=== PATIENT | male | born 1960 | race Caucasian/White ===

== ENCOUNTER 2016-09-14 11:59 | Emergency (ER) | payer OTHER ==
[2016-09-14 14:14] LABS: Hematocrit 44 % (42-52); Hemoglobin 14.9 g/dl (14.0-18.0); Mean Corpuscular HGB Conc 34 g/dl (31-36); Mean Corpuscular Hemoglobin 32 pg (27-31); Mean Corpuscular Volume 96 fL (80-94); Mean Platelet Volume 8 um3 (7.4-10.4); Red Blood Count 4.62 10^6/ul (4.0-5.4); Red Cell Distribution Width 14 % (10.5-15); White Blood Count 6.6 10^3/ul (3.5-10.8)
--- NOTE | 2016-09-14 14:14 | RAD ---
HISTORY: Chest pain COMPARISONS: May 14, 2014 VIEWS: 2: Frontal dual-energy and lateral views of the chest. FINDINGS: CARDIOMEDIASTINAL SILHOUETTE: The cardiomediastinal silhouette is normal. MAE: The mae are normal. PLEURA: The costophrenic angles are sharp. No pleural abnormalities are noted. LUNG PARENCHYMA: There is hyperinflation with flattening of the diaphragm and expansion of the AP diameter of the chest. ABDOMEN: The upper abdomen is clear. There is no subphrenic gas. BONES AND SOFT TISSUES: No bone or soft tissue abnormalities are noted. OTHER: None. IMPRESSION: HYPERINFLATION, CONSISTENT WITH COPD. NO ACTIVE CARDIOPULMONARY DISEASE.
[2016-09-14 14:20] LABS: Albumin 4.3 g/dL (3.2-5.2); BUN/Creatinine Ratio 14.5 (8-20); Calcium 9.4 mg/dL (8.6-10.3); EGFR African American 83.9 (>60); EGFR Non-African American 65.2 (>60); Globulin 2.9 g/dL (2-4); Total Bilirubin 0.6 mg/dL (0.2-1.0); Total Protein 7.2 g/dL (6.4-8.9)
[2016-09-14 14:25] LABS: Potassium 4.2 mmol/L (3.5-5.0)
[2016-09-14 16:08] VITALS: BP 133/93
--- NOTE | 2016-09-15 20:51 | ED ---
Zhane Watts Alok, scribed for Robert Young MD on 09/14/16 at 1344 . HPI Chest Pain - HPI Summary HPI Summary: 55M presents to the ED for a gradual onset of CP while at work about 2 hours ago. Pt states that this pain began in the right-side of his chest near the sternum and radiated to the left-side of his chest and left side of his neck. He described the pain as a pressure and was accompanied by diaphoresis. Pt states that the CP lasted 15 in total and subsided shortly after leaving his work place and denies CP currently. The pt states he believes the pain to be stress related. Pt denies tingling, SOB, or nausea. Pt takes medications for depression and HTN. PCP Dr. Gonzalez. - History of Current Complaint Chief Complaint: EDChestPainROMI Time Seen by Provider: 09/14/16 13:12 Hx Obtained From: Patient Onset/Duration: Started Minutes Ago, Atraumatic, Resolved Timing: Constant, Lasting Minutes Initial Severity: Moderate Current Severity: Moderate Pain Intensity: 3 Pain Scale Used: 0-10 Numeric Chest Pain Location: Right Anterior Chest Pain Radiates: Yes Chest Pain Radiates To:: Neck Character: Pressure/Squeezing Aggravating Factor(s): Other: - stress Associated Signs and Symptoms: Positive: Chest Pain, Diaphoresis. Negative: Tingling, Shortness of Breath, Nausea - Allergy/Home Medications Allergies/Adverse Reactions: Allergies Allergy/AdvReac Type Severity Reaction Status Date / Time No Known Allergies Allergy Verified 07/01/14 15:12 PMH/Surg Hx/FS Hx/Imm Hx Cardiovascular History: Reports: Hx Hypertension Infectious Disease History: No Infectious Disease History: Denies: Traveled Outside the [place] in Last 30 Days - Family History Known Family History: Positive: Other - Yes - Parkinson's (mother) Negative: Cardiac Disease Review of Systems Positive: Skin Diaphoresis. Negative: Fever Positive: Chest Pain Negative: Shortness Of Breath Negative: Nausea Neurological: Other - Negative: Tingling All Other Systems Reviewed And Are Negative: Yes Physical Exam Triage Information Reviewed: Yes Vital Signs On Initial Exam: Initial Vitals Temp Pulse Resp BP Pulse Ox 97.0 F 74 16 162/112 100 09/14/16 12:02 09/14/16 12:02 09/14/16 12:02 09/14/16 12:02 09/14/16 12:02 Vital Signs Reviewed: Yes Appearance: Positive: Well-Appearing, No Pain Distress Skin: Positive: Warm, Skin Color Reflects Adequate Perfusion, Dry Head/Face: Positive: Normal Head/Face Inspection Eyes: Positive: Normal ENT: Positive: Normal ENT inspection Neck: Positive: Supple, Nontender Respiratory/Lung Sounds: Positive: Clear to Auscultation, Breath Sounds Present Cardiovascular: Positive: RRR Abdomen Description: Positive: Nontender, Soft Bowel Sounds: Positive: Present Musculoskeletal: Positive: Normal Neurological: Positive: Normal Psychiatric: Positive: Normal, Affect/Mood Appropriate Diagnostics - Vital Signs Vital Signs Temp Pulse Resp BP Pulse Ox 09/14/16 12:02 97.0 F 74 16 162/112 100 - Laboratory Lab Results: Lab Results 09/14/16 09/14/16 09/14/16 Range/Units 13:45 13:45 13:45 WBC 6.6 (3.5-10.8) 10^3/ul RBC 4.62 (4.0-5.4) 10^6/ul Hgb 14.9 (14.0-18.0) g/dl Hct 44 (42-52) % MCV 96 H (80-94) fL MCH 32 H (27-31) pg MCHC 34 (31-36) g/dl RDW 14 (10.5-15) % Plt Count 206 (150-450) 10^3/ul MPV 8 (7.4-10.4) um3 Neut % (Auto) 70.2 (38-83) % Lymph % (Auto) 19.2 L (25-47) % [place] % (Auto) 8.5 (1-9) % Eos % (Auto) 1.5 (0-6) % Baso % (Auto) 0.6 (0-2) % Absolute Neuts (auto) 4.6 (1.5-7.7) 10^3/ul Absolute Lymphs (auto) 1.3 (1.0-4.8) 10^3/ul Absolute Monos (auto) 0.6 (0-0.8) 10^3/ul Absolute Eos (auto) 0.1 (0-0.6) 10^3/ul Absolute Basos (auto) 0 (0-0.2) 10^3/ul Absolute Nucleated RBC 0 10^3/ul Nucleated RBC % 0 INR (Anticoag Therapy) 0.92 (0.89-1.11) Sodium 136 (133-145) mmol/L Potassium 4.2 (3.5-5.0) mmol/L Chloride 105 (101-111) mmol/L Carbon Dioxide 24 (22-32) mmol/L Anion Gap 7 (2-11) mmol/L BUN 17 (6-24) mg/dL Creatinine 1.17 (0.67-1.17) mg/dL Est GFR ( Amer) 83.9 (>60) Est GFR (Non-Af Amer) 65.2 (>60) BUN/Creatinine Ratio 14.5 (8-20) Glucose 91 (70-100) mg/dL Lactic Acid (0.5-2.0) mmol/L Calcium 9.4 (8.6-10.3) mg/dL Total Bilirubin 0.60 (0.2-1.0) mg/dL AST 21 (13-39) U/L ALT 19 (7-52) U/L Alkaline Phosphatase 70 (34-104) U/L Troponin I 0.00 (<0.04) ng/mL Total Protein 7.2 (6.4-8.9) g/dL Albumin 4.3 (3.2-5.2) g/dL Globulin 2.9 (2-4) g/dL Albumin/Globulin Ratio 1.5 (1-3) 09/14/16 09/14/16 Range/Units 13:45 15:19 WBC (3.5-10.8) 10^3/ul RBC (4.0-5.4) 10^6/ul Hgb (14.0-18.0) g/dl Hct (42-52) % MCV (80-94) fL MCH (27-31) pg MCHC (31-36) g/dl RDW (10.5-15) % Plt Count (150-450) 10^3/ul MPV (7.4-10.4) um3 Neut % (Auto) (38-83) % Lymph % (Auto) (25-47) % [place] % (Auto) (1-9) % Eos % (Auto) (0-6) % Baso % (Auto) (0-2) % Absolute Neuts (auto) (1.5-7.7) 10^3/ul Absolute Lymphs (auto) (1.0-4.8) 10^3/ul Absolute Monos (auto) (0-0.8) 10^3/ul Absolute Eos (auto) (0-0.6) 10^3/ul Absolute Basos (auto) (0-0.2) 10^3/ul Absolute Nucleated RBC 10^3/ul Nucleated RBC % INR (Anticoag Therapy) (0.89-1.11) Sodium (133-145) mmol/L Potassium (3.5-5.0) mmol/L Chloride (101-111) mmol/L Carbon Dioxide (22-32) mmol/L Anion Gap (2-11) mmol/L BUN (6-24) mg/dL Creatinine (0.67-1.17) mg/dL Est GFR ( Amer) (>60) Est GFR (Non-Af Amer) (>60) BUN/Creatinine Ratio (8-20) Glucose (70-100) mg/dL Lactic Acid 0.7 (0.5-2.0) mmol/L Calcium (8.6-10.3) mg/dL Total Bilirubin (0.2-1.0) mg/dL AST (13-39) U/L ALT (7-52) U/L Alkaline Phosphatase (34-104) U/L Troponin I 0.00 (<0.04) ng/mL Total Protein (6.4-8.9) g/dL Albumin (3.2-5.2) g/dL Globulin (2-4) g/dL Albumin/Globulin Ratio (1-3) Result Diagrams: 09/14/16 13:45 09/14/16 13:45 Lab Statement: Any lab studies that have been ordered have been reviewed, and results considered in the medical decision making process. - Radiology CXR Xray Interpretation: Positive (See Comments) - HYPERINFLATION, CONSISTENT WITH COPD. NO ACTIVE CARDIOPULMONARY DISEASE. Radiology Interpretation Completed By: Radiologist - EKG 1210 Cardiac Rate: NL - 63 bpm EKG Rhythm: Sinus Rhythm Chest Pain Course/Dx - Course Course Of Treatment: Mr. Christie presented C/O CP that lasted about 15 minutes. It came on when he was under a great deal of stress at work and reolved shortly after extrcating himself from the situation and has not recurred. His initial BP was elevated but this also came down on its own accord. His W/U including two troponins was negative and it is possible that his BP was even higher during the stress. I recommended that he F/U for further testing with his PMD. - Diagnoses Provider Diagnoses: Chest pain Discharge - Discharge Plan Condition: Stable Disposition: HOME Patient Education Materials: Chest Pain (ED) Referrals: Fabiano Butler MD [Primary Care Provider] - Additional Instructions: Please follow up with your primary care provider. The documentation as recorded by the Zhane tapia Alok accurately reflects the service I personally performed and the decisions made by me, Robert Young MD.
== END 2016-09-14 16:15 | disposition home or self-care (01) ==
LOC: ED 11:59
DX: R07.9 Chest pain, unspecified (principal)
CPT/HCPCS: 36415; 71020; 80053; 83605; 84484; 85025; 85610; 93005; 99283

== ENCOUNTER 2018-10-04 21:57 | Inpatient (IN) | payer OTHER ==
[2018-10-04 23:41] LABS: ABS Lymphocytes 0.8 10^3/ul (1.0-4.8); ABS Monocytes 0.5 10^3/ul (0-0.8); ABS Neutrophils 9.2 10^3/ul (1.5-7.7); Hematocrit 46 % (42-52); Hemoglobin 15.5 g/dL (14.0-18.0); Lymphocyte % 7.8 %; Mean Corpuscular HGB Conc 33 g/dL (31-36); Mean Corpuscular Hemoglobin 32 pg (27-31); Mean Corpuscular Volume 95 fL (80-94); Mean Platelet Volume 7.3 fL (7.4-10.4); Platelet Count 238 10^3/uL (150-450); Red Blood Count 4.87 10^6 /uL (4.18-5.48); Red Cell Distribution Width 15 % (10.5-15); White Blood Count 10.6 10^3/uL (3.5-10.8)
[2018-10-04 23:59] LABS: Anion Gap 9 mmol/L (2-11); BUN/Creatinine Ratio 13.8 (8-20); Blood Urea Nitrogen 19 mg/dL (6-24); CO2 Carbon Dioxide 25 mmol/L (22-32); Calcium 9.9 mg/dL (8.6-10.3); Chloride 102 mmol/L (101-111); EGFR African American 64.7 (>60); EGFR Non-African American 53.5 (>60); Glucose 124 mg/dL (70-100); Potassium 4.7 mmol/L (3.5-5.0); Sodium 136 mmol/L (135-145)
[2018-10-05 00:04] LABS: CKMB ng/mL 189.6 ng/mL (0.6-6.3)
--- NOTE | 2018-10-05 00:05 | ED ---
HPI Chest Pain - HPI Summary HPI Summary: The patient is a 57 y/o M presenting to [facility] with a chief complaint of sudden onset mid-sternal and epigastric CP starting at 2000 tonight. He reports that he was at rest when the pain started. He denies nausea, vomiting, SOB, abd pain , and dizziness. The aching pain is still mildly present and currently rated 4/ 10 in severity. He reports that he usually doesn't have CP or SOB with ambulation. Three years ago the patient had similar symptoms without significant findings; he did not have a stress test after this. Hx of HTN controlled by medication. No FHx of cardiac disease. Current everyday light smoker. - History of Current Complaint Chief Complaint: EDChestPainROMI Time Seen by Provider: 10/04/18 23:55 Hx Obtained From: Patient Onset/Duration: Started Hours Ago - at 2000, Still Present Timing: Lasting Hours Initial Severity: Moderate Current Severity: Mild Pain Intensity: 4 Pain Scale Used: 0-10 Numeric Chest Pain Location: Mid Sternal Chest Pain Radiates: Yes Chest Pain Radiates To:: Epigastric Character: Dull/Aching Aggravating Factor(s): Nothing Alleviating Factor(s): Nothing Associated Signs and Symptoms: Negative: Dizziness, Shortness of Breath, Nausea , Abdominal Pain, Vomiting - Allergy/Home Medications Allergies/Adverse Reactions: Allergies Allergy/AdvReac Type Severity Reaction Status Date / Time No Known Allergies Allergy Verified 10/04/18 22:06 Home Medications: Home Medications Atenolol 1 tab PO DAILY 10/05/18 [History Confirmed 10/05/18] Duloxetine HCl 60 mg PO DAILY 10/05/18 [History Confirmed 10/05/18] Omeprazole 1 cap PO DAILY 10/05/18 [History Confirmed 10/05/18] buPROPion HCl [Bupropion HCl Sr] 150 mg PO Q48HR 10/05/18 [History Confirmed 05/25] PMH/Surg Hx/FS Hx/Imm Hx Endocrine/Hematology History: Denies: Hx Diabetes Cardiovascular History: Reports: Hx Hypertension Sensory History: Reports: Hx Contacts or Glasses Denies: Hx Deafness Opthamlomology History: Denies: Hx Legally Blind EENT History: Denies: Hx Deafness - Surgical History Surgery Procedure, Year, and Place: none Infectious Disease History: No Infectious Disease History: Denies: Traveled Outside the [place] in Last 30 Days - Family History Known Family History: Positive: Other - Yes - Parkinson's (mother) Negative: Cardiac Disease - Social History Alcohol Use: Occasionally Hx Substance Use: No Substance Use Type: Reports: None Hx Tobacco Use: Yes Smoking Status (MU): Light Every Day Tobacco Smoker Type: Cigarettes Review of Systems Positive: Chest Pain - mid-sternal and epigastric Negative: Shortness Of Breath Negative: Abdominal Pain, Vomiting, Nausea Neurological: Other - NEGATIVE: dizziness All Other Systems Reviewed And Are Negative: Yes Physical Exam - Summary Physical Exam Summary: Appearance: Well appearing, no pain distress Skin: warm, dry, reflects adequate perfusion Head/face: normal Eyes: EOMI, WARREN ENT: normal Neck: supple, non-tender Respiratory: CTA, breath sounds present Cardiovascular: RRR, pulses symmetrical Abdomen: non-tender, soft Musculoskeletal: normal, strength/ROM intact Neuro: normal, sensory motor intact, A&Ox3 Triage Information Reviewed: Yes Vital Signs On Initial Exam: Initial Vitals Temp Pulse Resp BP Pulse Ox 96.1 F 75 16 160/118 97 10/04/18 21:59 10/04/18 21:59 10/04/18 21:59 10/04/18 21:59 10/04/18 21:59 Vital Signs Reviewed: Yes Diagnostics - Vital Signs Vital Signs Temp Pulse Resp BP Pulse Ox 10/04/18 21:59 96.1 F 75 16 160/118 97 - Laboratory Lab Results: Lab Results 10/04/18 Range/Units 23:33 WBC 10.6 (3.5-10.8) 10^3/uL RBC 4.87 (4.18-5.48) 10^6 /uL Hgb 15.5 (14.0-18.0) g/dL Hct 46 (42-52) % MCV 95 H (80-94) fL MCH 32 H (27-31) pg MCHC 33 (31-36) g/dL RDW 15 (10.5-15) % Plt Count 238 (150-450) 10^3/uL MPV 7.3 L (7.4-10.4) fL Neut % (Auto) 86.9 % Lymph % (Auto) 7.8 % [place] % (Auto) 5.1 % Eos % (Auto) 0.0 % Baso % (Auto) 0.2 % Absolute Neuts (auto) 9.2 H (1.5-7.7) 10^3/ul Absolute Lymphs (auto) 0.8 L (1.0-4.8) 10^3/ul Absolute Monos (auto) 0.5 (0-0.8) 10^3/ul Absolute Eos (auto) 0.0 (0-0.6) 10^3/ul Absolute Basos (auto) 0.0 (0-0.2) 10^3/ul Absolute Nucleated RBC 0.0 10^3/ul Nucleated RBC % 0.0 Result Diagrams: 10/04/18 23:33 10/04/18 23:32 Lab Statement: Any lab studies that have been ordered have been reviewed, and results considered in the medical decision making process. - Radiology CXR Radiology Interpretation Completed By: Radiologist Summary of Radiographic Findings: No acute infiltrate. ED physician has reviewed this radiology report. - EKG 2157 Cardiac Rate: NL - 75 BPM EKG Rhythm: Sinus Rhythm EKG Comparison: Other - Changes from previous taken on 09/14/2016 Summary of EKG Findings: ST depressions in inferior leads EKG2 Cardiac Rate: NL - 61 BPM EKG Rhythm: Sinus Rhythm EKG Comparison: Other - No ST depressions like in previous EKG taken 10/04/2018 Summary of EKG Findings: No ST changes Re-Evaluation - Re-Evaluation First Eval Re-Evaluation Time: 00:30 Change: Improved Comment: The patient's pain has improved from 4/10 to 1/10. We discussed admission. Chest Pain Course/Dx - Course Assessment/Plan: The patient is a 57 y/o M presenting to [facility] with a chief complaint of sudden onset mid-sternal and epigastric CP starting at 2000 tonight while at rest. He denies nausea, vomiting, SOB, abd pain, and dizziness. Hx of HTN. Upon physical exam, the patient exhibits no acute abnormalities. In the ED course, the patient was administered ASA, NTG, Metoprolol, and Heparin. Blood work obtained. Troponin of 6.85 and APTT of 139.6. EKG reveals ST depressions in the inferior leads. CXR reveals no acute infiltrate. I spoke with Dr. Lopez, cardiology, at 0015 concerning the patient s lab work; he suggests a repeat EKG. Second EKG reveals no ST depressions. At 0030, I discussed EKG results with Dr. Lopez, and he recommends NTG drip, but the patient needs admission despite pain and BP decreasing. I consulted with Dr. Dobbs, hospitalist, who accepts the patient for admission at 0045. He is diagnosed with acute coronary syndrome. He agrees with the plan for admission and understands the need for admission at this time. - Chest Pain Differential Diagnosis/HQI/PQRI: Acute SD, ACS, Angina, CHF, Chest Wall, Lower Respiratory Infection, Pulmonary Edema - Diagnoses Provider Diagnoses: ACS (acute coronary syndrome) - Provider Notifications Discussed Care Of Patient With: Jens Lopez - cardiology Time Discussed With Above Provider: 00:15 Instructed by Provider To: Other - I discussed the patient's case with Dr. Lopez; he suggests second EKG at this time. After the second EKG at 0030, I spoke with Dr. Lopez again, and he recommends nitro drip and admission despite decrease in pain and BP. I discussed the patient's case with Dr. Dobbs, hospitalist, at 0045, and she accepts the patient for admission at this time. - Critical Care Time Critical Care Time: 75-104 min Discharge - Sign-Out/Discharge Documenting (check all that apply): Patient Departure - Patient is accepted for admission by Dr. Dobbs. Patient Received Moderate/Deep Sedation with Procedure: No - Discharge Plan Condition: Stable Disposition: ADMITTED TO [facility] - Billing Disposition and Condition Condition: STABLE Disposition: Admitted to [facility] - Attestation Statements Document Initiated by Harish: Yes Documenting Scribe: Tamika Dorado Provider For Whom Harish is Documenting (Include Credential): Dr. Richard Witt MD Scribe Attestation: Tamika Watts, scribed for Dr. Richard Witt MD on 10/05/18 at 0515. Scribe Documentation Reviewed: Yes Provider Attestation: The documentation as recorded by the Tamika tapia accurately reflects the service I personally performed and the decisions made by me, Dr. Richard Witt MD Status of Scribe Document: Viewed
[2018-10-05] MEDS ORDERED: Aspirin 81 mg CHEW TAB* 81 MG TAB.CHEW PO ONE (00:06)
[2018-10-05] MEDS ORDERED: Metoprolol Tartrate TAB* 25 MG PO ONE (00:07)
[2018-10-05] MEDS ORDERED: Heparin for STEMI(*) 5,000 UNITS/ML 1 ML VIAL IV ONE (00:07)
[2018-10-05 00:13] LABS: Troponin I 6.85 ng/mL (<0.04)
[2018-10-05] MEDS ORDERED: Heparin DRIP 25,000 UNITS(*) 25,000 UNITS/500 ML BAG IV SCH (00:15)
[2018-10-05 00:30] LABS: Creatine Kinase 1250 U/L (10-223)
[2018-10-05] MEDS ORDERED: Nitroglycerin TAB 0.3 MG* 0.3 MG TAB SL ONE (00:36)
[2018-10-05] MEDS ORDERED: Metoprolol Tartrate IV* 1 MG/ML 5 ML VIAL IV ONE ×2 (00:36→07:03)
[2018-10-05] MEDS ORDERED: nitroGLYCERIN DRIP* 25,000 MCG/250 ML BTL IV ONE ×2 (00:37→01:03)
[2018-10-05] MEDS ORDERED: Atorvastatin* 80 MG TAB PO ONE ×2 (01:05→21:00)
[2018-10-05 01:37] LABS: INR 1.07 (0.82-1.09)
[2018-10-05 01:53] LABS: Activated Partial Thrombo Time 139.6 seconds (26.0-38.0)
[2018-10-05 03:22] LABS: Troponin I 23.28 ng/mL (<0.04)
--- NOTE | 2018-10-05 03:28 | HP ---
CC: Dr. Butler.* HISTORY AND PHYSICAL: DATE OF ADMISSION: 10/05/18 PRIMARY CARE PROVIDER: Dr. Butler. CHIEF COMPLAINT: Chest pain. HISTORY OF PRESENT ILLNESS: Mr. Christie is a 57-year-old male who had been out in his yard, doing yard work on the day prior to admission. He states that this was light yard work that included getting up on a 6-foot tall ladder and cleaning leaves out of a gutter. He states that he went inside and laid down on the bed. He believes he fell asleep for approximately 20 minutes and when he awakened, he had centrally located chest discomfort and diaphoresis. The patient states that this began at approximately 3:30 to 4 p.m. on the day prior to admission. He described the chest discomfort as a weight on his chest. He also describes significant diaphoresis. He had no associated shortness of breath, no nausea. He did not have any radiation of the pain. He noted that the pain remained constant at approximately a level of 4 and present until he presented to the emergency room. In the emergency room, after a sublingual nitroglycerin, the patient had a decrease in his pain level down to 1, though continues to have discomfort in his chest. The patient states that he did have an episode similar to this approximately 2 years ago. He was hospitalized at that time. He states that he was seen in the emergency room at that time. He had serial troponins performed in the ER and was discharged home. The patient has had no chest pain since that time. PAST MEDICAL HISTORY: 1. Depression. 2. GERD. 3. Hypertension. PAST SURGICAL HISTORY: Appendectomy. MEDICATIONS: 1. Bupropion SR 150 mg p.o. q.48 hours. 2. Omeprazole 20 mg p.o. daily. 3. Duloxetine 60 mg p.o. daily. 4. Atenolol 25 mg p.o. daily. FAMILY HISTORY: Mom at the age of 82 following a broken hip. Dad is living, he is 94, he has a history of chronic kidney disease. There is no family history of premature coronary artery disease. SOCIAL HISTORY: The patient has been an ongoing smoker over the last 20 years. He states that he quit today learning that he is having an [place]. He has been smoking about 10 cigarettes per day. He drinks alcohol on occasion. He is retired from [employer]. He is not . He has no children. He indicates that his brother, Александр will be his healthcare proxy. REVIEW OF SYSTEMS: A complete 11-system review of systems is obtained. Pertinent positives and negatives are as per HPI. In addition, the patient does admit to an occasional cough, which has been an ongoing issue. He denies any recent long distance travel. There has been no hematochezia, no hematuria. PHYSICAL EXAMINATION GENERAL: The patient is a well-developed, middle-aged male, seen sitting up in the stretcher, in no acute distress. VITAL SIGNS: Blood pressure 154/107, pulse 68, respirations 15, temp 96.1 (I question if this is valid), O2 sat 96% on room air. HEENT: Pupils are equal and round. Extraocular muscles are intact. Oropharynx is clear. Oral mucosa is moist. NECK: There is no submandibular, cervical or supraclavicular adenopathy. Thyroid is not enlarged. No thyroid nodules noted. PULMONARY: Lungs are clear to auscultation bilaterally. CARDIAC: Normal S1, S2. Regular rate and rhythm. I do not appreciate any murmurs. There is no lower extremity edema. ABDOMEN: Bowel sounds are present. Abdomen is soft, nontender, and nondistended. MUSCULOSKELETAL: There is no cyanosis or clubbing of the digits. There is full active range of motion of all 4 extremities. NEURO: Cranial nerves II through XII are grossly intact. Sensation is intact to light touch throughout. Strength is 5/5 and symmetric to both upper and lower extremities bilaterally. SKIN: Warm and dry. There are no rashes. PSYCH: The patient is alert. He is oriented x3. Affect is appropriate. DIAGNOSTIC STUDIES/LAB DATA: Labs: WBC 10.6, hemoglobin 15.5, hematocrit 46, platelets 238. Sodium 136, potassium 4.7, chloride 102, CO2 of 25, BUN 19, creatinine 1.38, glucose 124, calcium 9.9, CPK 1250, CK-MB 189.6, troponin 6.85. EKG initially reveals normal sinus rhythm with significant ST depressions in the inferior leads. Repeat EKG shows improvement in ST depressions. Chest x-ray to my interpretation is clear. ASSESSMENT AND PLAN: Mr. Christie is a 57-year-old male with a history of hypertension, gastroesophageal reflux disease, and depression, who presents to the emergency room with complaints of chest pain. 1. Non ST elevation myocardial infarction. At this point, it is clear that the patient is having a non-ST elevation myocardial infarction. His EKG has improved as has his degree of chest discomfort. At this point, the plan is to medically manage the patient through the night and have Cardiology formally consult in the morning. The patient will continue on aspirin, metoprolol 25 mg twice daily, Lipitor 80 mg daily, heparin drip, and nitroglycerin infusion. The goal is to get the patient chest pain free. He will have a followup troponin at 0230 as well as a followup EKG at 0700. I suspect the patient will need to be taken to the catheterization lab. I have informed the patient that he is to monitor for any worsened chest pain or any other concerning symptoms. If anything is to develop, he is to alert his nurse. The patient will undergo a transthoracic echocardiogram on 10/06/18. 2. Hypertension. The patient's blood pressure has been uncontrolled in the emergency room. He typically will take Tylenol 25 mg daily, however, in the setting of myocardial infarction, I am going to change this to metoprolol tartrate 25 mg twice daily. He may benefit from an KILEY inhibitor, however, his creatinine is up slightly from his baseline, therefore, I will hold on this for now. He is going to be on a nitroglycerin infusion, this will likely improve his blood pressure. We will continue to monitor his BP on the nitroglycerin. If his creatinine improves, lisinopril should be initiated. 3. Gastroesophageal reflux disease. We will continue PPI. 4. Depression. Continue bupropion and duloxetine. 5. DVT prophylaxis. According to the Adult Thrombosis Prophylaxis Risk Factor Assessment Guide, the patient has a total risk factor score of 3, making him high risk. He is already going to be on heparin drip and this will act as his DVT prophylaxis. 8. Code status is full. TIME SPENT: Sixty minutes was spent admitting this patient. [id number]/CPS #: [id number] MORRIS
[2018-10-05 06:52] LABS: Troponin I 37.33 ng/mL (<0.04)
[2018-10-05] MEDS ORDERED: Ticagrelor* 90 MG TAB PO ONE ×2 (07:37→08:00)
[2018-10-05] MEDS ORDERED: Lidocaine 1% INJ* 10 MG/ML 30 ML SDV ONE ×2 (07:41→07:56)
[2018-10-05] MEDS ORDERED: Iodixanol 320 (CONTRAST) 100 ML SDV ONE ×3 (07:43→09:08)
[2018-10-05] MEDS ORDERED: Heparin 2 UNITS/ML IVPREMIX* 2,000 UNIT/1,000 ML BAG IV ONE ×2 (07:43→08:55)
[2018-10-05] MEDS ORDERED: Midazolam* 1 MG/ML 5 ML VIAL (5 MG) ONE (07:56)
[2018-10-05] MEDS ORDERED: fentaNYL* 50 MCG/ML 2 ML VIAL (100 MCG VIAL) ONE (07:56)
[2018-10-05] MEDS ORDERED: Heparin(*) 1000 UNIT/ML 10 ML VIAL CATH LAB IV ONE (07:56)
[2018-10-05] MEDS ORDERED: Bivalirudin(*) 250 MG VIAL ONE (08:35)
[2018-10-05] MEDS ORDERED: nitroGLYCERIN DRIP* 25,000 MCG/250 ML BTL ONE (08:38)
[2018-10-05] MEDS ORDERED: Lisinopril TAB* 5 MG PO SCH (09:00)
[2018-10-05] MEDS ORDERED: NS 0.9% 1000 ML** 1,000 ML IV SCH (09:45)
[2018-10-05] MEDS ORDERED: Nitroglycerin TAB 0.4 MG* 0.4 MG TAB SL PRN (09:45)
[2018-10-05] MEDS: Aspirin 81 mg CHEW TAB* 81 MG TAB.CHEW PO SCH (10:11)
[2018-10-05] MEDS: Pantoprazole TAB * 40 MG TAB PO SCH (10:11)
[2018-10-05] MEDS: DULoxetine DR CAP* 60 MG CAP.DR PO SCH (10:11)
[2018-10-05] MEDS: Metoprolol Tartrate TAB* 25 MG PO SCH ×2 (10:11→20:11)
[2018-10-05] MEDS: buPROPion SR TAB.SR* 150 MG PO SCH (10:11)
--- NOTE | 2018-10-05 10:39 | CONS ---
CC: Jens Lopez MD; Dr. Butler CARDIOLOGY CONSULTATION: DATE OF CONSULT: 10/05/18 REASON FOR EVALUATION: Chest pain, [id number]. HISTORY OF PRESENT ILLNESS: This is a very pleasant 57-year-old gentleman with a history of hypertension, depression, and hyperlipidemia. He was in his usual state of health until yesterday afternoon. He said that he was doing some yard work, cleaning some weeds out of a gutter going up and down a small ladder. He felt well doing that. Then he went to bed and fell asleep. He woke up at about 4:00 with substernal chest pressure, diaphoresis, and shortness of breath that lasted about 20 to 30 minutes and because of his persistent pain, he decided to come to the emergency room. He said the worse of the symptoms would have lasted about 10, 20 or 30 minutes, but he did not proceed to the emergency room until about 10 o'clock at night. The worse of his pain was 4/10. When he got to the emergency room, he was noted to have inferior ST depressions, new compared to the prior EKG. He was treated with beta-blockers, IV heparin, IV nitro with improvement in his pain and his ST depressions. He was hypertensive when he first arrived. As mentioned, his EKG improved and his chest pain went to about 1/10. He says he is not sure if that went away, it kind of waxed and waned over the next couple of hours. This morning he says he continues to have mild discomfort. He denies any syncope or near syncope. He says he feels a little warm, but he thinks the room is warm. He is not short of breath. No orthopnea, no peripheral edema. No palpitations, syncope, or near syncope. He says normally he is not very active, but does ride a bike for 30 or 40 minutes on level ground twice a week. PAST MEDICAL HISTORY: GERD; hypertension depression tobacco use, discontinued 1 month ago; mild COPD according to the x-ray from 3 to 4 years ago hyperlipidemia, not treated. PAST SURGICAL HISTORY: Includes an appendectomy in 85. MEDICATIONS: His medications include: 1. Bupropion SR 150 mg q.48 hours. 2. Omeprazole 20 mg a day. 3. Duloxetine 60 mg a day. 4. Atenolol 25 mg a day. Medications as impatient include: 1. Aspirin 81 mg a day. 2. Lipitor 80 mg a day. 3. Wellbutrin 150 mg q.48. 4. Cymbalta 60 mg a day. 5. IV heparin. 6. Metoprolol tartrate 25 mg b.i.d. 7. Nitroglycerin drip at 15 mcg a minute. 8. Protonix 40 mg a day. 9. He just got Brilinta 180 mg. ALLERGIES: He denies any allergies. FAMILY HISTORY: His father is alive and 94. Mother at approximately 82 when she fell and broke her hip. SOCIAL HISTORY: He is single, has no children. He is retired from [employer] at [employer]. REVIEW OF SYSTEMS: Review of systems x10 was negative except as above. PHYSICAL EXAM: He is a well-developed, well-nourished gentleman, in no apparent distress. No significant JVD. No cervical adenopathy. Extraocular muscles intact. Sclerae anicteric. Cardiac Exam: S1, S2. No murmurs, gallops, or rubs. Chest was clear, no CVAT. Mild kyphosis. Abdomen: Bowel sounds present. Nontender. Femoral pulses intact without bruits. Distal pulses intact. No edema. Motor strength 5/5 bilaterally. Deep tendon reflexes 3/4 in the lower extremities and in the upper extremities. Alert and oriented x3. No significant rashes and blood pressure was 113/76 and pulse is 71 at the time of the examination. DIAGNOSTIC STUDIES/LAB DATA: EKG from this morning at 7 a.m. revealed sinus rhythm with 0.[address] depression inferiorly and rSr prime in V1 and V2, similar to 25 past midnight on 10/05/18 except for flattening of the T waves. The EKG from 10/04/18 revealed about [address] depression inferiorly and [address] elevation in aVL. Those findings improved on subsequent EKG. His EKG from September of 2016 revealed sinus rhythm with rSr prime in V1 and V2, but no other significant ST shifts. His labs include white count of 10.6, hemoglobin of 15.5, hematocrit of 46, and platelet count of 238. Potassium of 4.7, BUN 19, creatinine of 1.38. Troponin was initially 6.85 went to 23.28 and 37.33. CBC: White count 10.6, hemoglobin of 15.5, hematocrit of 46, platelet count of 238. Chest x-ray reveals somewhat uncoiled aorta, normal cardiac silhouette, no acute infiltrates. IMPRESSION: My impression is that Mr. Christie appears to have had a non-ST- elevation myocardial infarction. He initially had improvement in his ST depressions and symptoms, but he has had incomplete resolution of his pain as of this morning despite control of his blood pressure on IV nitro and medications. I discussed the case with the patient and with Dr. Pinon, who kindly agreed to see the patient for consideration of cardiac catheterization. I have discussed the case with the patient and the risks and benefits of urgent catheterization including, but not limited to infarct, , stroke and renal failure were discussed. The patient understands and agrees to proceed the plans as follows: 1. We will continue IV heparin, IV nitro. 2. Brilinta has been added as per request of Dr. Pinon. 3. Continue aspirin. 4. Continue to monitor his heart rate and blood pressure. 5. We will monitor serial EKGs and troponins. 6. We will add Lipitor for plaque stabilization. 7. I commended him on stopping smoking. I explained to him the importance of refraining from smoking in the future in terms of his morbidity and mortality. 8. I also explained to him the potential risks of stent thrombosis after stent placement and need to continue to his dual antiplatelet therapy for at lest a year uninterrupted. [id number]/[facility] #: [id number] MORRIS
[2018-10-05] MEDS: Nitroglycerin 0.1 mg/Hr PATCH* (2.5 MG) TRANSDERM SCH (11:21)
[2018-10-05 12:21] LABS: CKMB ng/mL > 304.0 ng/mL (0.6-6.3); Troponin I > 79.00 ng/mL (<0.04)
[2018-10-05 12:37] LABS: Creatine Kinase 5043 U/L (10-223)
--- NOTE | 2018-10-05 17:31 | PN ---
Subjective Date of Service: 10/05/18 Interval History: Patient seen and examined post cath. Alert, denies chest pain. No SOB, no n/v, states he feels hungry. Mild cough. No further complaints. Objective Active Medications: Aspirin (Aspirin 81 Mg Chew Tab*) 81 mg PO DAILY [facility] Last Admin: 10/05/18 10:11 Dose: Not Given Atorvastatin Calcium (Lipitor*) 80 mg PO 2100 [facility] Bupropion HCl (Wellbutrin Sr Tab*) 150 mg PO Q48HR [facility] Last Admin: 10/05/18 10:11 Dose: Not Given Duloxetine HCl (Cymbalta Cap*) 60 mg PO DAILY [facility] Last Admin: 10/05/18 10:11 Dose: Not Given Sodium Chloride (Ns 0.9% 1000 Ml) 1,000 mls @ 75 mls/hr IV PER RATE [facility] Stop: 10/05/18 19:44 Metoprolol Tartrate (Lopressor Tab*) 25 mg PO BID [facility] Last Admin: 10/05/18 10:11 Dose: Not Given Nitroglycerin (Nitroglycerin Tab 0.4 Mg*) 0.4 mg SL Q5M PRN PRN Reason: ANGINA Nitroglycerin (Nitroglycerin 2.5 Mg Patch*) 1 patch TRANSDERM DAILY@0900 [facility] Last Admin: 10/05/18 11:21 Dose: 1 patch Pantoprazole Sodium (Protonix Tab*) 40 mg PO DAILY [facility] Last Admin: 10/05/18 10:11 Dose: Not Given Pharmacy Profile Note (Nitro Patch/Oint Remove*) 1 note PATCH OFF 2100 [facility] Ticagrelor (Brilinta*) 90 mg PO BID [facility] Vital Signs - 8 hr 10/05/18 10/05/18 10/05/18 09:52 09:55 10:00 Temperature Pulse Rate 64 68 73 Respiratory 11 14 Rate Blood Pressure 129/73 121/82 (mmHg) O2 Sat by Pulse 95 96 94 Oximetry 10/05/18 10/05/18 10/05/18 10:09 10:15 10:30 Temperature Pulse Rate 75 63 66 Respiratory 17 16 14 Rate Blood Pressure 107/76 123/89 116/61 (mmHg) O2 Sat by Pulse 94 94 96 Oximetry 10/05/18 10/05/18 10/05/18 10:45 11:00 11:15 Temperature Pulse Rate 65 73 77 Respiratory 18 20 18 Rate Blood Pressure 125/78 125/85 144/92 (mmHg) O2 Sat by Pulse 97 98 98 Oximetry 10/05/18 10/05/18 10/05/18 11:30 11:45 11:48 Temperature Pulse Rate 72 70 69 Respiratory 23 18 18 Rate Blood Pressure 126/83 131/90 121/93 (mmHg) O2 Sat by Pulse 96 97 96 Oximetry 10/05/18 10/05/18 10/05/18 12:00 12:21 13:00 Temperature 98.4 F Pulse Rate 73 77 Respiratory 19 16 Rate Blood Pressure 127/88 121/83 (mmHg) O2 Sat by Pulse 97 96 Oximetry 10/05/18 10/05/18 10/05/18 14:00 15:00 16:00 Temperature 98.2 F Pulse Rate 74 82 82 Respiratory 16 18 21 Rate Blood Pressure 142/94 128/78 (mmHg) O2 Sat by Pulse 96 94 94 Oximetry 10/05/18 10/05/18 10/05/18 16:01 16:43 17:00 Temperature Pulse Rate 85 82 80 Respiratory 19 15 17 Rate Blood Pressure 134/90 108/84 110/67 (mmHg) O2 Sat by Pulse 96 93 93 Oximetry Oxygen Devices in Use Now: None Appearance: alert, NAD Eyes: No Scleral Icterus, PERRLA Ears/Nose/Mouth/Throat: NL Teeth, Lips, Gums, Mucous Membranes Moist Neck: NL Appearance and Movements; NL JVP, Trachea Midline Respiratory: Symmetrical Chest Expansion and Respiratory Effort, Clear to Auscultation Cardiovascular: NL Sounds; No Murmurs; No JVD, RRR, No Edema Abdominal: NL Sounds; No Tenderness; No Distention Extremities: No Edema, No Clubbing, Cyanosis Skin: No Rash or Ulcers, - - right groin site CDI, no hematoma Neurological: Alert and Oriented x 3, NL Sensation Nutrition: Taking PO's, - Result Diagrams: 10/04/18 23:33 10/04/18 23:32 Additional Lab and Data: Lab Results 10/04/18 Range/Units 23:33 WBC 10.6 (3.5-10.8) 10^3/uL RBC 4.87 (4.18-5.48) 10^6 /uL Hgb 15.5 (14.0-18.0) g/dL Hct 46 (42-52) % MCV 95 H (80-94) fL MCH 32 H (27-31) pg MCHC 33 (31-36) g/dL RDW 15 (10.5-15) % Plt Count 238 (150-450) 10^3/uL MPV 7.3 L (7.4-10.4) fL Neut % (Auto) 86.9 % Lymph % (Auto) 7.8 % Luce % (Auto) 5.1 % Eos % (Auto) 0.0 % Baso % (Auto) 0.2 % Absolute Neuts (auto) 9.2 H (1.5-7.7) 10^3/ul Absolute Lymphs (auto) 0.8 L (1.0-4.8) 10^3/ul Absolute Monos (auto) 0.5 (0-0.8) 10^3/ul Absolute Eos (auto) 0.0 (0-0.6) 10^3/ul Absolute Basos (auto) 0.0 (0-0.2) 10^3/ul Absolute Nucleated RBC 0.0 10^3/ul Nucleated RBC % 0.0 Microbiology and Other Data: Microbiology 10/05/18 02:14 Nasal Screen MRSA (PCR) - Final Nasal Mrsa Not Detected Assess/Plan/Problems-Billing Assessment: This is a 57 year old male with history of HTN, depression and HLP that presented to the ED with persistent chest pain with positive troponins, s/p PCI with 2 stents today. - Patient Problems (1) NSTEMI (non-ST elevated myocardial infarction) Code(s): I21.4 - NON-ST ELEVATION (NSTEMI) MYOCARDIAL INFARCTION SNOMED Code(s ): 92398546 Comment: - Troponin max at >79, EKG with changes to inferior and lateral leads - s/p [address] Pinon, please see interventional notes - Cardiology following - NTG drip discontinued, NTG patch placed, monitor for persistent angina - Continue BB, consider low dose KILEY for LV dysfunction if BP stable - ASA and Brilinta (2) HTN (hypertension) Code(s): I10 - ESSENTIAL (PRIMARY) HYPERTENSION SNOMED Code(s): 46353785 Comment: - Continue BB, BP stable (3) Hyperlipemia Code(s): E78.5 - HYPERLIPIDEMIA, UNSPECIFIED SNOMED Code(s): 63100231 Comment: - High dose statin (4) Depression Code(s): F32.9 - MAJOR DEPRESSIVE DISORDER, SINGLE EPISODE, UNSPECIFIED SNOMED Code(s): 62124136 Comment: - continue home SSRI regimen (5) Full code status Code(s): Z78.9 - OTHER SPECIFIED HEALTH STATUS SNOMED Code(s): 762690703 Status and Disposition: Inpatient, critical.
[2018-10-05 18:55] LABS: CKMB ng/mL > 304.0 ng/mL (0.6-6.3); Troponin I > 79.00 ng/mL (<0.04)
[2018-10-05 19:21] LABS: Creatine Kinase 3644 U/L (10-223)
[2018-10-05] MEDS: Atorvastatin* 80 MG TAB PO SCH (20:10)
[2018-10-05] MEDS: Ticagrelor* 90 MG TAB PO SCH (20:11)
[2018-10-05] MEDS: Nitro Patch/OINT Remove PATCH OFF SCH (20:12)
[2018-10-06 05:14] LABS: Anion Gap 7 mmol/L (2-11); BUN/Creatinine Ratio 12.6 (8-20); Blood Urea Nitrogen 17 mg/dL (6-24); CO2 Carbon Dioxide 23 mmol/L (22-32); Calcium 9.1 mg/dL (8.6-10.3); Chloride 107 mmol/L (101-111); EGFR African American 66.4 (>60); EGFR Non-African American 54.9 (>60); Glucose 114 mg/dL (70-100); Potassium 3.8 mmol/L (3.5-5.0); Sodium 137 mmol/L (135-145)
[2018-10-06 06:55] LABS: ALT 78 U/L (7-52); AST 283 U/L (13-39); Albumin 4.2 g/dL (3.2-5.2); Albumin/Globulin Ratio 1.6 (1-3); Alkaline Phosphatase 77 U/L (34-104); Globulin 2.7 g/dL (2-4); Total Protein 6.9 g/dL (6.4-8.9)
[2018-10-06] MEDS: Ticagrelor* 90 MG TAB PO SCH ×2 (09:30→20:45)
[2018-10-06] MEDS: Aspirin 81 mg CHEW TAB* 81 MG TAB.CHEW PO SCH (09:30)
[2018-10-06] MEDS: Metoprolol Tartrate TAB* 25 MG PO SCH ×2 (09:30→20:46)
[2018-10-06] MEDS: Nitroglycerin 0.1 mg/Hr PATCH* (2.5 MG) TRANSDERM SCH (09:31)
[2018-10-06] MEDS: DULoxetine DR CAP* 60 MG CAP.DR PO SCH (09:31)
[2018-10-06] MEDS: Pantoprazole TAB * 40 MG TAB PO SCH (09:31)
[2018-10-06] MEDS ORDERED: Potassium Chloride* LIQUID 20 MEQ/15 ML UDC PO ONE (09:44)
[2018-10-06 10:14] LABS: Magnesium 2.2 mg/dL (1.9-2.7)
[2018-10-06 10:25] LABS: Troponin I > 79.00 ng/mL (<0.04)
[2018-10-06 10:35] LABS: Creatine Kinase 2269 U/L (10-223)
--- NOTE | 2018-10-06 10:53 | ECHO ---
[place] [address] Fax #: [phone] Transthoracic Echocardiogram Patient: Shahnaz, Height: 69 in / Pranav D 175.3 cm : 1960 Weight: 196.6 lb / Study Date: 10/06/2018 89.4 kg Age: 57 BP: 113 / 74 Gender: M BMI/BSA: 29.1 kg/m^2 HR: 81 bpm / 2.05 m^2 *Pediatric Oncology Nurse: * Angeli German [facility] *Referring Physician: * Suha Dobbs *Reading Physician: * Jens Lopez MD Indications: Myocardial Infarction (new). History: Risk factors: Current tobacco use. Hypertension. Hyperlipidemia. Labs, prior tests, procedures, and surgery: Catheterization (10/05/2018). Abnormal. The study demonstrated coronary artery disease. There was a stenosis which was treated with a stent. Conclusions Summary: 1. Left ventricle: There is mild concentric hypertrophy. The estimated ejection fraction is 35-40%, closer to 35%. Doppler parameters are consistent with abnormal left ventricular relaxation (grade 1 diastolic dysfunction). 2. Mitral valve: There is mild regurgitation. Study data: Transthoracic echocardiogram. Procedure: Transthoracic echocardiography was performed. Image quality was fair. The study was technically limited due to poor acoustic window availability. Complete 2D, spectral Doppler, and color flow Doppler. Location: ICU Patient status: Inpatient. Patient room number: ICU-3. No prior study is available for comparison. Rhythm: Normal sinus rhythm. Findings Left ventricle: The cavity size is normal. There is mild concentric hypertrophy. The estimated ejection fraction is 35-40%, closer to 35%. Regional wall motion abnormalities: Hypokinesis of the inferolateral myocardium. Hypokinesis of the anterolateral myocardium. Akinesis of the anterior myocardium. Severe hypokinesis of the basal-mid inferolateral, basal-mid anterolateral, and apical lateral myocardium; moderate hypokinesis of the basal and apical inferior myocardium; mild hypokinesis of the basal and apical anterior, mid inferior, apical septal, and apical myocardium. Doppler parameters are consistent with abnormal left ventricular relaxation (grade 1 diastolic dysfunction). Right ventricle: The cavity size is normal. Systolic function is low normal. Ventricular septum: The outflow septum has a sigmoid appearance. Left atrium: The atrium is at the upper limits of normal in size. Right atrium: The atrium is normal in size. Mitral valve: The leaflets are mildly thickened. There is no evidence of stenosis. There is mild regurgitation. Aortic valve: The valve is trileaflet. The leaflets are mildly thickened. There is no evidence of stenosis. There is no significant regurgitation. Tricuspid valve: The leaflets are normal thickness. There is no evidence of stenosis. There is physiologic regurgitation. Pulmonic valve: The leaflets are normal thickness. There is no evidence of stenosis. There is trivial regurgitation. Aorta: Aortic root: The aortic root is mildly dilated. Ascending aorta: The ascending aorta is mildly dilated. Aortic arch: The aortic arch is appears normal. Pericardium: A prominent pericardial fat pad is present. Pulmonary arteries: The main pulmonary artery is normal-sized. Systemic veins: Inferior vena cava: The respirophasic diameter changes are in the normal range (>= 50%). Measurements Left ventricle Value Ref Right atrium continued Value Ref BREANNA, LAX (L) 4.1 cm 4.2 - 5.8 SI dim, ES, A4C 4.5 cm 3.4 - ESD, LAX 3.4 cm 2.5 - 4.0 5.3 FS, LAX (L) 18 % 25 - 43 SI dim/bsa, ES, 2.2 cm/m^2 1.8 - PW, ED, LAX (H) 1.4 cm 0.6 - 1.0 A4C 3.0 FS (L) 18 % 25 - 43 Estimated RAP 3 mm Hg -------- Mid-wall FS 7 % PW, ED (H) 1.1 cm 0.6 - 1.0 Aortic valve Value Ref PW/ID, ED 0.26 Zandra diam, ED 1.9 cm -------- E', lat zandra, TDI (L) 3.7 cm/sec >=10.0 Peak v, S 1.23 m/sec - ------- E/e', lat zandra, 12 VTI, S 25.3 cm ---- ---- TDI Mean grad, S 3.0 mm Hg -------- E', med zandra, TDI (L) 5.4 cm/sec >=7.0 Peak grad, S 6.0 mm Hg - ------- E/e', med zandra, 9 LVOT/AV, VTI ratio 0.75 ---- ---- TDI E', avg, TDI 4.6 cm/sec Mitral valve Value Ref E/e', avg, TDI 10 <=14 Peak E 0.46 m/sec - ------- Peak A 0.71 m/sec -------- LVOT Value Ref Decel time 271 ms -------- Peak chiquis, S 0.98 m/sec Peak E/A ratio 0.6 -------- VTI, S 19.0 cm Mean grad, S 2 mm Hg Pulmonic valve Value Ref Peak v, S 0.81 m/sec -------- Ventricular septum Value Ref Peak grad, S 3.0 mm Hg -------- IVS, ED (H) 1.4 cm 0.6 - 1.0 Aortic root Value Ref Right ventricle Value Ref Root diam 3.6 cm <4.2 BREANNA minor ax, A4C 3.3 cm 1.9 - 3.5 mid Ascending aorta Value Ref AAo AP diam, S 3.9 cm -------- Left atrium Value Ref AP dim, ES 3.50 cm 3.00 - Aortic arch Value Ref 4.00 Arch diam 2.4 cm -------- ML dim, A4C 4.3 cm SI dim, A4C 5.3 cm Decending aorta Value Ref Vol/bsa, ES, 1-p 31 ml/m^2 12 - 37 Herlinda peak chiquis 0.64 m/sec -------- A4C Vol/bsa, ES, A/L 34 ml/m^2 16 - 34 Inferior vena cava Value Ref Diam 1.4 cm -------- Right atrium Value Ref SI dim, ES 4.5 cm 3.4 - 5.3 ML dim, ES, A4C 3.9 cm 2.6 - 4.4 Legend: (L) and (H) erica values outside specified reference range. Prepared and electronically signed by Jens Lopez MD 10/06/2018 10:52
--- NOTE | 2018-10-06 11:00 | CATH ---
CC: Dr. Jens Lopez, [facility]; Dr. Fabiano Butler CARDIAC CATHETERIZATION AND INTERVENTIONAL REPORT: DATE OF PROCEDURE: 10/05/18 INDICATION FOR PROCEDURE: The patient with stuttering let-KV-jiubtbarm myocardial infarction with marked positive enzymes and continued chest discomfort. PROCEDURE: Coronary arteriography, left heart catheterization, left ventriculography, balloon angioplasty and placement of a 3.0 x 28 mm long Synergy drug-eluting stent in the first high posteriorly directed diagonal branch overlapped more proximally by a 3.0 x 8 mm long Synergy drug-eluting stent post dilated to 3.1 to 3.2 mm. CONSENT: The patient was interviewed and examined in the intensive care unit, where the risks and benefits were explained. He understood them and wished to proceed. PRECARDIAC CATHETERIZATION LABORATORY RESULTS: Hemoglobin and hematocrit of 15.5 and 46 with a platelet count of 238,000. BUN and creatinine were 19 and 1.38, sodium 136, potassium 4.7, chloride 102, bicarb 25. Troponin was 37.3. EQUIPMENT UTILIZED: 1. Right femoral artery sheath was a 6.5 Merit Prelude sheath. 2. Diagnostic guidewire was a regular length J-tip guidewire. 3. Diagnostic coronary catheters - a 5-[place] FL4.5 curve and a 5-[place] FR4.0 curve diagnostic catheter. 4. Left heart catheterization catheter was a 5-[place] pigtail catheter. 5. Guide catheter was a VL4 curve 6-[place] guide catheter. 6. The guidewire utilized was a 300 cm length All Star guidewire. 7. Balloon angioplasty catheters included a 1.5 x 15 mm length Emerge over-the - wire catheter and a 2.5 x 15 mm long Emerge rapid exchange catheter. 8. Stents utilized were a 3.0 x 28 mm long and a 3.0 x 8 mm long Synergy drug- eluting stent. 9. Post-stent deployment balloon catheter was a 3.0 x 12 mm long [place] Emerge balloon. 10. Closure device utilized was a 6/7-[place] Mynx vascular closure device. MEDICATIONS GIVEN: The patient had already received 4000 units of heparin in the emergency room in addition to aspirin therapy. He also received 180 mg of Brilinta in the emergency room. In the seed analysis laboratory assistant, an ACT was checked and found to be subtherapeutic. An Angiomax bolus and Angiomax drip was started. He received a total of 2 mg of Versed and local Xylocaine 1%. He also had intracoronary nitroglycerin administered. APPROACH: Right femoral artery approach was utilized. DESCRIPTION OF PROCEDURE: The patient was brought to the cardiovascular laboratory, where a formal time-out was performed. He was prepped and draped in sterile fashion. Right groin area was anesthetized with 1% lidocaine. Right femoral artery was cannulated with an anterior wall only stick. A sheath was placed. Diagnostic coronary arteriography was performed, left heart catheterization was performed, and left ventriculography was performed utilizing a total of 28 cc of Isovue dye at a rate of 14 cc per second. The catheter was then pulled by across the aortic valve to recheck gradient. Following this, the decision was made to intervene in the totally occluded high first posteriorly directed diagonal branch. As mentioned above, an ACT was checked and found to be subtherapeutic, and an Angiomax bolus and Angiomax drip was started. The patient had already received aspirin and Brilinta therapy. Guiding views were obtained and the All Star exchange length wire was advanced and was successfully able to cross the total occluded first diagonal branch. The 1.5 x 15 mm long Emerge balloon was utilized to confirm that the wire was intracoronary. Following this, the 2.5 x 15 mm long Emerge balloon was advanced and dilated. Following this, both stents were placed and post-stent deployment dilatations were made. The artery was then assessed for result. At the end of the case, the wires, catheters, and sheaths were removed and hemostasis was obtained with the Mynx closure device. Total contrast used was 250 cc of Isovue dye. The radiation exposure included 16.9 minutes of fluoro time. The air kerma radiation was 3952 mGy. The DAP radiation was 23,293 microgray per m2. RESULTS: HEMODYNAMIC DATA: Left heart catheterization revealed central aortic pressure 141/90 with a mean of 112, left ventricular pressure 145 over left ventricular end- diastolic pressure of 34. LEFT VENTRICULOGRAPHY: Performed in the PAIGE projection revealed akinesis of the mid and distal anterolateral wall with preservation of the apical region and distal inferior wall, the mid inferior wall had moderate hypokinesis, the more proximal inferior wall had very mild hypokinesis. The overall EF was estimated approximately 30% to 35%. CORONARY ARTERIOGRAPHY: A. Left coronary artery: 1. Left main - widely patent. 2. Left anterior descending artery - the left anterior descending artery supplied a very high totally occluded first diagonal branch posteriorly directed followed by the continuation of the LAD supplying multiple diagonal branches and wrapping around the apical region on to the distal inferior wall. The proximal to mid portion after the high first posteriorly directed diagonal branch and an area of narrowing approximately 45% to 50%. The second diagonal branch is threadlike in appearance and is probably occluded in it's proximal to mid portion. The distal vessel had a mild 30% narrowing noted. Collateral blood flow was seen to the right coronary artery via septal perforators as well as collaterals noted, very sluggishly, to the totally occluded posteriorly directed first diagonal branch. Collateral filling could be seen as well from the distal LAD to the circumflex distal thread-like branches in late phase of injection. 3. Circumflex artery - a nondominant vessel, very small in caliber from its beginning with thread-like branches totally occluded proximally. B. Right coronary artery - a dominant vessel, totally occluded proximally, well- established collaterals are seen to the distal vessel from proximal branches. This retrograde fills toward the PDA, but does not fill the PDA well. The PDA is noted to be filled from the left anterior descending artery. INTERVENTION INTO HIGH FIRST POSTERIORLY DIRECTED DIAGONAL BRANCH: Successful recanalization of totally occluded diagonal branch with balloon angioplasty and placement of a 3.0 x 28 mm long Synergy drug-eluting stent overlapped more proximally with a 3.0 x 8 mm long Synergy drug-eluting stent post dilated 3.1 to 3.2 mm with 5% to 10% residual stenosis, LUPE-3 flow, no dissection seen. OVERALL ASSESSMENT: Significant multivessel disease involving a small caliber and thread-like circumflex artery with collaterals from the distal LAD noted with no vessels that are deemed bypassable to this artery. The right coronary artery is totally occluded proximal with multiple collaterals to this vessel. The first diagonal branch was totally occluded proximally with slow flow and was intervened on successfully with drug-eluting stent placement. The second diagonal branch is threadlike and probably occluded in it's proximal to mid portion. Dual antiplatelet therapy would be mandatory for a minimum of a year' s time. Aggressive treatment for overall left ventricular systolic dysfunction with beta jesus therapy, KILEY inhibition, and possibly Aldactone therapy as well would be appropriate. Nitrate therapy for dilatation of collaterals also would be appropriate as blood pressure tolerates. All of this will be under the guidance of Dr. Jens Lopez, the patient's primary town clerk, who has seen the patient in consultation. Aggressive risk factor management is paramount. These results were discussed with Dr. Lopez as well as the hospitalist taking care of the patient. [id number]/[facility] #: [id number] MTDD
[2018-10-06] MEDS: Captopril TAB* 12.5 MG PO SCH ×2 (11:40→20:46)
[2018-10-06] MEDS ORDERED: NS 0.9% 250 ML* 250 ML IV ONE (12:36)
[2018-10-06] MEDS ORDERED: Metoprolol Tartrate TAB* 25 MG PO SCH (12:37)
[2018-10-06] MEDS: NS 0.9% 1000 ML** 1,000 ML IV SCH (13:02)
[2018-10-06 13:48] LABS: ABS Lymphocytes 1.3 10^3/ul (1.0-4.8); ABS Monocytes 1.1 10^3/ul (0-0.8); ABS Neutrophils 5.7 10^3/ul (1.5-7.7); Eosinophil % 0.3 %; Hematocrit 42 % (42-52); Hemoglobin 13.9 g/dL (14.0-18.0); Lymphocyte % 15.9 %; Mean Corpuscular HGB Conc 33 g/dL (31-36); Mean Corpuscular Hemoglobin 31 pg (27-31); Mean Corpuscular Volume 95 fL (80-94); Mean Platelet Volume 7.4 fL (7.4-10.4); Platelet Count 206 10^3/uL (150-450); Red Blood Count 4.42 10^6 /uL (4.18-5.48); Red Cell Distribution Width 15 % (10.5-15); White Blood Count 8.2 10^3/uL (3.5-10.8)
--- NOTE | 2018-10-06 14:39 | PN ---
Subjective Date of Service: 10/06/18 Interval History: Patient seen and examined, OOB to chair, ambulated some, no SOB, no chest pain during exertion. Denies fatigue or other anginal equivalents at this time. Tolerating PO intake. No further complaints. Objective Active Medications: Aspirin (Aspirin 81 Mg Chew Tab*) 81 mg PO DAILY [facility] Last Admin: 10/06/18 09:30 Dose: 81 mg Atorvastatin Calcium (Lipitor*) 80 mg PO 2100 [facility] Last Admin: 10/05/18 20:10 Dose: 80 mg Bupropion HCl (Wellbutrin Sr Tab*) 150 mg PO Q48HR [facility] Last Admin: 10/05/18 10:11 Dose: Not Given Captopril (Capoten Tab*) 6.25 mg PO TID [facility] Last Admin: 10/06/18 11:40 Dose: Not Given Duloxetine HCl (Cymbalta Cap*) 60 mg PO DAILY [facility] Last Admin: 10/06/18 09:31 Dose: 60 mg Sodium Chloride (Ns 0.9% 1000 Ml) 1,000 mls @ 75 mls/hr IV PER RATE [facility] Last Admin: 10/06/18 13:02 Dose: 75 mls/hr Metoprolol Tartrate (Lopressor Tab*) 25 mg PO BID [facility] Nitroglycerin (Nitroglycerin Tab 0.4 Mg*) 0.4 mg SL Q5M PRN PRN Reason: ANGINA Pantoprazole Sodium (Protonix Tab*) 40 mg PO DAILY [facility] Last Admin: 10/06/18 09:31 Dose: 40 mg Pharmacy Profile Note (Nitro Patch/Oint Remove*) 1 note PATCH OFF 2099 [facility] Last Admin: 10/05/18 20:12 Dose: Not Given Ticagrelor (Brilinta*) 90 mg PO BID [facility] Last Admin: 10/06/18 09:30 Dose: 90 mg Vital Signs - 8 hr 10/06/18 10/06/18 10/06/18 07:00 08:00 09:00 Temperature 98.6 F Pulse Rate 78 84 76 Respiratory 15 15 14 Rate Blood Pressure 122/90 116/72 107/63 (mmHg) O2 Sat by Pulse 94 95 94 Oximetry 10/06/18 10/06/18 10/06/18 10:00 10:16 11:00 Temperature Pulse Rate 82 Respiratory 15 16 15 Rate Blood Pressure (mmHg) O2 Sat by Pulse 95 Oximetry 10/06/18 10/06/18 10/06/18 11:11 11:30 11:35 Temperature Pulse Rate 81 82 83 Respiratory 15 15 15 Rate Blood Pressure 81/61 76/63 77/63 (mmHg) O2 Sat by Pulse 95 95 95 Oximetry 10/06/18 10/06/18 10/06/18 12:00 12:22 13:00 Temperature 98.6 F Pulse Rate 84 79 84 Respiratory 10 32 18 Rate Blood Pressure 86/61 100/67 125/92 (mmHg) O2 Sat by Pulse 96 95 96 Oximetry Oxygen Devices in Use Now: None Appearance: alert, NAD Eyes: No Scleral Icterus, PERRLA Ears/Nose/Mouth/Throat: NL Teeth, Lips, Gums, Mucous Membranes Moist Neck: NL Appearance and Movements; NL JVP, Trachea Midline Respiratory: Symmetrical Chest Expansion and Respiratory Effort, Clear to Auscultation Cardiovascular: NL Sounds; No Murmurs; No JVD, RRR, No Edema Abdominal: NL Sounds; No Tenderness; No Distention Extremities: No Edema, No Clubbing, Cyanosis Skin: No Rash or Ulcers, - - cath site CDI Neurological: Alert and Oriented x 3 Nutrition: Taking PO's Result Diagrams: 10/06/18 13:40 10/06/18 04:47 Additional Lab and Data: Lab Results 10/04/18 Range/Units 23:33 WBC 10.6 (3.5-10.8) 10^3/uL RBC 4.87 (4.18-5.48) 10^6 /uL Hgb 15.5 (14.0-18.0) g/dL Hct 46 (42-52) % MCV 95 H (80-94) fL MCH 32 H (27-31) pg MCHC 33 (31-36) g/dL RDW 15 (10.5-15) % Plt Count 238 (150-450) 10^3/uL MPV 7.3 L (7.4-10.4) fL Neut % (Auto) 86.9 % Lymph % (Auto) 7.8 % [place] % (Auto) 5.1 % Eos % (Auto) 0.0 % Baso % (Auto) 0.2 % Absolute Neuts (auto) 9.2 H (1.5-7.7) 10^3/ul Absolute Lymphs (auto) 0.8 L (1.0-4.8) 10^3/ul Absolute Monos (auto) 0.5 (0-0.8) 10^3/ul Absolute Eos (auto) 0.0 (0-0.6) 10^3/ul Absolute Basos (auto) 0.0 (0-0.2) 10^3/ul Absolute Nucleated RBC 0.0 10^3/ul Nucleated RBC % 0.0 Microbiology and Other Data: Microbiology 10/05/18 02:14 Nasal Screen MRSA (PCR) - Final Nasal Mrsa Not Detected Assess/Plan/Problems-Billing Assessment: This is a 57 year old male with history of HTN, depression and HLP that presented to the ED with persistent chest pain with positive troponins, s/p PCI with 2 stents on 10/05/2018. - Patient Problems (1) NSTEMI (non-ST elevated myocardial infarction) Code(s): I21.4 - NON-ST ELEVATION (NSTEMI) MYOCARDIAL INFARCTION SNOMED Code(s ): 18720296 Comment: - Troponin max at >79, EKG with changes to inferior and lateral leads - s/p [address] Pinon, please see interventional notes - Cardiology following - NTG drip discontinued, NTG patch placed, monitor for persistent angina - Continue BB, consider low dose KILEY for LV dysfunction if BP stable - ASA and Brilinta (2) HTN (hypertension) Code(s): I10 - ESSENTIAL (PRIMARY) HYPERTENSION SNOMED Code(s): 46923027 Comment: - metoprolol BID, low dose KILEY added today, but patient was hypotensive with systolics in the 80's - Small fluid bolus given of 250ml NS and 75ml/hr for additional 250ml, captopril held - continue to monitor closely for fluid overload given low EF (3) Hyperlipemia Code(s): E78.5 - HYPERLIPIDEMIA, UNSPECIFIED SNOMED Code(s): 82641706 Comment: - High dose statin (4) Depression Code(s): F32.9 - MAJOR DEPRESSIVE DISORDER, SINGLE EPISODE, UNSPECIFIED SNOMED Code(s): 98509099 Comment: - continue home SSRI regimen (5) Full code status Code(s): Z78.9 - OTHER SPECIFIED HEALTH STATUS SNOMED Code(s): 516042071 Status and Disposition: Inpatient, critical.
[2018-10-06] MEDS: Nitro Patch/OINT Remove PATCH OFF SCH (20:30)
[2018-10-06] MEDS: Atorvastatin* 80 MG TAB PO SCH (20:45)
[2018-10-07] MEDS: NS 0.9% 1000 ML** 1,000 ML IV SCH (03:49)
[2018-10-07 06:00] LABS: ABS Eosinophils 0.1 10^3/ul (0-0.6); ABS Lymphocytes 1.5 10^3/ul (1.0-4.8); ABS Neutrophils 4.7 10^3/ul (1.5-7.7); Eosinophil % 1.1 %; Hematocrit 36 % (42-52); Hemoglobin 12.3 g/dL (14.0-18.0); Mean Corpuscular HGB Conc 34 g/dL (31-36); Mean Corpuscular Hemoglobin 32 pg (27-31); Mean Corpuscular Volume 95 fL (80-94); Mean Platelet Volume 7.3 fL (7.4-10.4); Platelet Count 190 10^3/uL (150-450); Red Blood Count 3.81 10^6 /uL (4.18-5.48); Red Cell Distribution Width 14 % (10.5-15); White Blood Count 7.3 10^3/uL (3.5-10.8)
[2018-10-07 06:25] LABS: BUN/Creatinine Ratio 13.8 (8-20); Blood Urea Nitrogen 15 mg/dL (6-24); CO2 Carbon Dioxide 23 mmol/L (22-32); Calcium 7.3 mg/dL (8.6-10.3); EGFR Non-African American 70.2 (>60); Glucose 92 mg/dL (70-100); Potassium 3.4 mmol/L (3.5-5.0); Sodium 140 mmol/L (135-145)
[2018-10-07 06:28] LABS: Anion Gap 3 mmol/L (2-11); Chloride 114 mmol/L (101-111); Troponin I 44.33 ng/mL (<0.04)
[2018-10-07] MEDS: DULoxetine DR CAP* 60 MG CAP.DR PO SCH (08:13)
[2018-10-07] MEDS: Metoprolol Tartrate TAB* 25 MG PO SCH ×2 (08:13→20:39)
[2018-10-07] MEDS: buPROPion SR TAB.SR* 150 MG PO SCH (08:14)
[2018-10-07] MEDS: Captopril TAB* 12.5 MG PO SCH ×3 (08:14→20:39)
[2018-10-07] MEDS: Aspirin 81 mg CHEW TAB* 81 MG TAB.CHEW PO SCH (08:14)
[2018-10-07] MEDS: Pantoprazole TAB * 40 MG TAB PO SCH (08:14)
[2018-10-07] MEDS: Ticagrelor* 90 MG TAB PO SCH ×2 (08:14→20:39)
--- NOTE | 2018-10-07 17:39 | PN ---
Subjective Date of Service: 10/07/18 Interval History: Patient seen and examined. OOB to chair. Denies dizziness, no chest pain, no SOB. No acute overnight events. Ambulated without dyspnea as per RN. Objective Active Medications: Aspirin (Aspirin 81 Mg Chew Tab*) 81 mg PO DAILY [facility] Last Admin: 10/07/18 08:14 Dose: 81 mg Atorvastatin Calcium (Lipitor*) 80 mg PO 2100 [facility] Last Admin: 10/06/18 20:45 Dose: 80 mg Bupropion HCl (Wellbutrin Sr Tab*) 150 mg PO Q48HR [facility] Last Admin: 10/07/18 08:14 Dose: 150 mg Captopril (Capoten Tab*) 6.25 mg PO TID [facility] Last Admin: 10/07/18 14:50 Dose: 6.25 mg Duloxetine HCl (Cymbalta Cap*) 60 mg PO DAILY [facility] Last Admin: 10/07/18 08:13 Dose: 60 mg Metoprolol Tartrate (Lopressor Tab*) 12.5 mg PO BID [facility] Last Admin: 10/07/18 08:13 Dose: 12.5 mg Nitroglycerin (Nitroglycerin Tab 0.4 Mg*) 0.4 mg SL Q5M PRN PRN Reason: ANGINA Pantoprazole Sodium (Protonix Tab*) 40 mg PO DAILY [facility] Last Admin: 10/07/18 08:14 Dose: 40 mg Ticagrelor (Brilinta*) 90 mg PO BID [facility] Last Admin: 10/07/18 08:14 Dose: 90 mg Vital Signs - 8 hr 10/07/18 10/07/18 10/07/18 09:30 10:00 10:30 Temperature Pulse Rate 82 75 88 Respiratory 9 22 18 Rate Blood Pressure 109/81 103/64 110/79 (mmHg) O2 Sat by Pulse 97 95 98 Oximetry 10/07/18 10/07/18 10/07/18 11:00 11:30 11:43 Temperature 97.4 F Pulse Rate 92 83 Respiratory 13 11 Rate Blood Pressure 116/71 107/76 (mmHg) O2 Sat by Pulse 94 96 Oximetry 10/07/18 10/07/18 10/07/18 12:00 12:30 13:00 Temperature Pulse Rate 82 81 100 Respiratory 19 15 10 Rate Blood Pressure 115/85 112/79 (mmHg) O2 Sat by Pulse 94 94 95 Oximetry 10/07/18 10/07/18 10/07/18 13:01 13:30 14:00 Temperature Pulse Rate 93 93 86 Respiratory 16 16 15 Rate Blood Pressure 125/89 120/85 109/64 (mmHg) O2 Sat by Pulse 94 97 96 Oximetry 10/07/18 10/07/18 14:30 15:43 Temperature 98 F Pulse Rate 83 Respiratory 17 Rate Blood Pressure 110/69 (mmHg) O2 Sat by Pulse 94 Oximetry Oxygen Devices in Use Now: None Appearance: Alert, NAD Eyes: No Scleral Icterus, PERRLA Ears/Nose/Mouth/Throat: NL Teeth, Lips, Gums, Mucous Membranes Moist Respiratory: Symmetrical Chest Expansion and Respiratory Effort, Clear to Auscultation Cardiovascular: NL Sounds; No Murmurs; No JVD, RRR, No Edema Abdominal: NL Sounds; No Tenderness; No Distention Extremities: No Edema, No Clubbing, Cyanosis Skin: No Rash or Ulcers Neurological: Alert and Oriented x 3, NL Muscle Strength and Tone Nutrition: Taking PO's Result Diagrams: 10/07/18 05:45 10/07/18 05:45 Additional Lab and Data: Lab Results 10/04/18 Range/Units 23:33 WBC 10.6 (3.5-10.8) 10^3/uL RBC 4.87 (4.18-5.48) 10^6 /uL Hgb 15.5 (14.0-18.0) g/dL Hct 46 (42-52) % MCV 95 H (80-94) fL MCH 32 H (27-31) pg MCHC 33 (31-36) g/dL RDW 15 (10.5-15) % Plt Count 238 (150-450) 10^3/uL MPV 7.3 L (7.4-10.4) fL Neut % (Auto) 86.9 % Lymph % (Auto) 7.8 % [place] % (Auto) 5.1 % Eos % (Auto) 0.0 % Baso % (Auto) 0.2 % Absolute Neuts (auto) 9.2 H (1.5-7.7) 10^3/ul Absolute Lymphs (auto) 0.8 L (1.0-4.8) 10^3/ul Absolute Monos (auto) 0.5 (0-0.8) 10^3/ul Absolute Eos (auto) 0.0 (0-0.6) 10^3/ul Absolute Basos (auto) 0.0 (0-0.2) 10^3/ul Absolute Nucleated RBC 0.0 10^3/ul Nucleated RBC % 0.0 Microbiology and Other Data: Microbiology 10/05/18 02:14 Nasal Screen MRSA (PCR) - Final Nasal Mrsa Not Detected Assess/Plan/Problems-Billing Assessment: This is a 57 year old male with history of HTN, depression and HLP that presented to the ED with persistent chest pain with positive troponins, s/p PCI with 2 stents on 10/05/2018. - Patient Problems (1) NSTEMI (non-ST elevated myocardial infarction) Code(s): I21.4 - NON-ST ELEVATION (NSTEMI) MYOCARDIAL INFARCTION SNOMED Code(s ): 93759891 Comment: - Troponin max at >79, EKG with changes to inferior and lateral leads - s/p 2 stents 10/05/[address] Pinon, please see interventional notes - Cardiology following - NTG patch removed 2/2 hypotension - Continue BB at lower dose, continue KILEY at low dose with hold parameters for LV dysfunction - ASA and Brilinta (2) HTN (hypertension) Code(s): I10 - ESSENTIAL (PRIMARY) HYPERTENSION SNOMED Code(s): 75658793 Comment: - BB and KILEY with hold parameters, BP low stable (3) Hyperlipemia Code(s): E78.5 - HYPERLIPIDEMIA, UNSPECIFIED SNOMED Code(s): 62071212 Comment: - High dose statin (4) Depression Code(s): F32.9 - MAJOR DEPRESSIVE DISORDER, SINGLE EPISODE, UNSPECIFIED SNOMED Code(s): 84817886 Comment: - continue home SSRI regimen (5) Full code status Code(s): Z78.9 - OTHER SPECIFIED HEALTH STATUS SNOMED Code(s): 886518655 Status and Disposition: Inpatient, guarded. Downgrade to tele.
[2018-10-07] MEDS: Atorvastatin* 80 MG TAB PO SCH (20:39)
[2018-10-08] MEDS: Metoprolol Tartrate TAB* 25 MG PO SCH (09:49)
[2018-10-08] MEDS: Captopril TAB* 12.5 MG PO SCH (09:50)
[2018-10-08] MEDS: Ticagrelor* 90 MG TAB PO SCH (09:51)
[2018-10-08] MEDS: DULoxetine DR CAP* 60 MG CAP.DR PO SCH (09:51)
[2018-10-08] MEDS: Pantoprazole TAB * 40 MG TAB PO SCH (09:51)
[2018-10-08] MEDS: Aspirin 81 mg CHEW TAB* 81 MG TAB.CHEW PO SCH (09:51)
[2018-10-08 13:14] VITALS: BP 114/80
== END 2018-10-08 12:10 | disposition home or self-care (01) | DRG 247 ==
LOC: ED 21:57 → ICU 10-05 01:00
PROVIDERS: ADMIT Hospitalist; ATTEND Internal Medicine
PROC: B2111ZZ Fluoroscopy of Multiple Coronary Arteries using Low Osmolar Contrast (ICD-10-PCS; 2018-10-05)
PROC: 4A023N7 Measurement of Cardiac Sampling and Pressure, Left Heart, Percutaneous Approach (ICD-10-PCS; 2018-10-05)
PROC: B2151ZZ Fluoroscopy of Left Heart using Low Osmolar Contrast (ICD-10-PCS; 2018-10-05)
PROC: 027035Z Dilation of Coronary Artery, One Artery with Two Drug-eluting Intraluminal Devices, Percutaneous Approach (ICD-10-PCS; principal; 2018-10-05 08:00)
DX: I21.4 Non-ST elevation (NSTEMI) myocardial infarction (principal); I10 Essential (primary) hypertension; F17.210 Nicotine dependence, cigarettes, uncomplicated; F32.9 Major depressive disorder, single episode, unspecified; E78.5 Hyperlipidemia, unspecified; J44.9 Chronic obstructive pulmonary disease, unspecified; K21.9 Gastro-esophageal reflux disease without esophagitis; Z82.0 Family history of epilepsy and other diseases of the nervous system; Z72.89 Other problems related to lifestyle; Z82.49 Family history of ischemic heart disease and other diseases of the circulatory system; Z84.1 Family history of disorders of kidney and ureter
CPT/HCPCS: 36415; 71046; 80048; 80053; 82550; 82553; 83735; 84484; 85025; 85347; 85610; 85730; 87641; 93005; 93306; 93458; 94660; 99285; A9270-GY; C1725; C1760; C1769; C1876; C1887; C9600-LD; J0583; J1644; J2250; J3010; J3490